=== PATIENT | female | born 1940 | race Two or more races ===

== ENCOUNTER 2025-01-02 13:36 | Emergency (ER) | payer OTHER ==
[~2025-01-02] VITALS: Ht 162.6 cm; Wt 72.6 kg
[2025-01-02] MEDS ORDERED: ROSUVASTATIN CAL5 MG PO (13:53)
[2025-01-02] MEDS ORDERED: AMLODIPINE BESYL5 MG PO (13:53)
[2025-01-02 16:13] LABS: URINE APPEARANCE Clear; URINE BILIRRUBIN Negative (NEGATIVE); URINE BLOOD Negative; URINE COLOR Dark Yellow; URINE GLUCOSE Negative (NEGATIVE); URINE KETONE 15 (NEGATIVE); URINE LEUKOCYTE Trace; URINE NITRATE Negative; URINE PROTEIN 30 (NEGATIVE)
[2025-01-02 16:16] LABS: URINE BACTERIA 521.4 uL (0.0-1933); URINE CAST 8.98 uL (0.0-1.40); URINE EPITHELIAL CELLS 36.7 uL (0.0-38.8); URINE RBC 44.9 uL (0.0-20.8); URINE WBC 22.9 uL (0.0-23.2)
[2025-01-02 16:34] LABS: HEMATOCRIT 39.6 % (36.0-45.00); HEMOGLOBIN 13.6 g/dL (12.0-15.00); MEAN CELL VOLUME 92.4 fL (80.00-100.00); MEAN CORPUSCULAR HEMOGLOBIN 31.6 pg (27.00-32.0); MEAN CORPUSCULAR HGB CONC 34.2 g/dl (32.0-36.0); PLATELET COUNT 256 K/uL (150-450); RED BLOOD COUNT 4.29 M/uL (4.00-6.00); RED CELL DISTRIBUTION WIDTH 14.9 % (11.5-14.5)
[2025-01-02 16:41] LABS: PARTIAL THROMBOPLASTIN TIME 24.5 SECONDS (22.0-34.0); PROTHROMBIN TIME 10.9 SECONDS (9.0-11.5)
[2025-01-02 17:24] LABS: ALBUMIN 4.2 gm/dL (3.4-5.0); BILIRUBIN TOTAL 0.48 mg/dL (0.3-1.2); CALCIUM 10.1 mg/dL (8.5-10.1); GFR 53.08; GLOBULINA 4.1 G/DL (2.4-3.5); POTASSIUM 3.95 mEq/L (3.5-5.1); TOTAL PROTEIN 8.3 gm/dL (6.4-8.2)
== END 2025-01-02 18:13 | disposition home or self-care (01) ==
LOC: ER 13:39
PROVIDERS: Emergency Medicine
DX: R07.89 Other chest pain (principal); I10 Essential (primary) hypertension; E78.00 Pure hypercholesterolemia, unspecified